=== PATIENT | female | born 1995 | race Two or more races ===

== ENCOUNTER 2022-06-14 09:15 | Outpatient (CLI) | payer OTHER | END 2022-06-14 09:27 | disposition home or self-care (01) | LOC: SONOGRAMA 09:15 | PROVIDERS: ATTEND Obstetrics & Gynecology Reproductive Endocrinology | DX: N93.8 Other specified abnormal uterine and vaginal bleeding (principal) ==

== ENCOUNTER 2022-12-24 07:16 | Outpatient (CLI) | payer OTHER | END 2022-12-24 07:17 | disposition home or self-care (01) | LOC: SONOGRAMA 07:16 | DX: N63.10 Unspecified lump in the right breast, unspecified quadrant (principal); N60.11 Diffuse cystic mastopathy of right breast; N60.12 Diffuse cystic mastopathy of left breast ==

== ENCOUNTER 2023-03-08 09:19 | Emergency (ER) | payer OTHER ==
[~2023-03-08] VITALS: Ht 154.9 cm; Wt 95.3 kg
== END 2023-03-08 18:31 | disposition home or self-care (01) ==
LOC: ER 09:19
DX: K64.8 Other hemorrhoids (principal); K62.5 Hemorrhage of anus and rectum; K76.0 Fatty (change of) liver, not elsewhere classified

== ENCOUNTER 2023-11-05 08:54 | Outpatient (CLI) | payer OTHER | END 2023-11-05 08:56 | disposition home or self-care (01) | LOC: RX STUDY 08:54 | DX: N93.8 Other specified abnormal uterine and vaginal bleeding (principal) ==

== ENCOUNTER 2024-07-19 12:57 | Emergency (ER) | payer OTHER ==
[~2024-07-19] VITALS: Ht 154.9 cm; Wt 95.3 kg
[2024-07-19] MEDS ORDERED: DEXAMETHASONE SODIUM PHOSPHATE 4 MG/ML VIAL IM STA (16:13)
[2024-07-19] MEDS ORDERED: ORPHENADRINE CITRATE 30 MG/ML AMPUL IM STA (16:13)
[2024-07-19] MEDS ORDERED: NORFLEX100MG PO (16:17)
== END 2024-07-19 16:44 | disposition home or self-care (01) ==
LOC: ER 12:59
DX: M62.838 Other muscle spasm (principal)

== ENCOUNTER 2024-09-28 20:00 | Emergency (ER) | payer OTHER ==
[~2024-09-28] VITALS: Ht 154.9 cm; Wt 96.2 kg
[~2024-09-28 20:00] MED LIST: NORFLEX100MG PO
[2024-09-28] MEDS ORDERED: ONDANSETRON HCL 2 MG/ML VIAL IV ONE (21:00)
[2024-09-28] MEDS ORDERED: KETOROLAC TROMETHAMINE 15 MG VIAL IV ONE (21:00)
[2024-09-28] MEDS ORDERED: 0.9 % SODIUM CHLORIDE 1,000 ML IV SCH (21:15)
[2024-09-28] MEDS ORDERED: KETOROLAC TROMETHAMINE 30 MG VIAL ONE (21:23)
[2024-09-28] MEDS ORDERED: ONDANSETRON HCL 2 MG/ML VIAL ONE (21:23)
[2024-09-28 21:55] LABS: HEMATOCRIT 37.2 % (36.0-45.00); HEMOGLOBIN 12.7 g/dL (12.0-15.00); MEAN CELL VOLUME 84.3 fL (80.00-100.00); MEAN CORPUSCULAR HEMOGLOBIN 28.8 pg (27.00-32.0); MEAN CORPUSCULAR HGB CONC 34.1 g/dl (32.0-36.0); PLATELET COUNT 250 K/uL (150-450); RED BLOOD COUNT 4.41 M/uL (4.00-6.00); RED CELL DISTRIBUTION WIDTH 13.4 % (11.5-14.5)
[2024-09-28 22:32] LABS: ALBUMIN 4.1 gm/dL (3.4-5.0); BILIRUBIN TOTAL 0.45 mg/dL (0.3-1.2); CALCIUM 9.2 mg/dL (8.5-10.1); CREATININE SERUM 0.82 mg/dL (0.55-1.02); GFR 81.31; GLOBULINA 3.7 G/DL (2.4-3.5); POTASSIUM 3.87 mEq/L (3.5-5.1); TOTAL PROTEIN 7.8 gm/dL (6.4-8.2)
[2024-09-28] MEDS ORDERED: DICLOFENAC SODI75 MG PO (23:30)
== END 2024-09-28 23:38 | disposition home or self-care (01) ==
LOC: ER 20:02
PROVIDERS: General Practice
DX: N83.292 Other ovarian cyst, left side (principal); N83.291 Other ovarian cyst, right side; N28.1 Cyst of kidney, acquired